=== PATIENT | female | born 2000 | race Caucasian/White ===

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

== ENCOUNTER 2020-01-14 23:42 | Emergency (ER) | payer MEDICAID ==
[~2020-01-14] VITALS: Ht 162.6 cm; Wt 101.6 kg
[2020-01-14 23:56] VITALS: BP 113/62
--- NOTE | 2020-01-15 00:29 | NUR ---
PATIENT AMBULATED TO BED 11.
--- NOTE | 2020-01-15 00:45 | NUR ---
PT C/O OPENING OF HER INCISION SITE FROM HER 2 WEEKS AGO. STATES SHE NOTICED IT THIS MORNING. DENIES PAIN AT THE SITE OR ABDOMINAL AREA. C/O ITCHINESS AT THE SITE. DENIES ANY EXTREME MOVEMENT OR EXERCISE. SITE IS PINK AND MOIST IN COLOR, NO DRAINAGE, NO ODOR. VSS.
[2020-01-15] MEDS ORDERED: BACITRACIN OINT 500 UNITS/GM PKT TP ONE (01:04)
[2020-01-15] MEDS ORDERED: NEOMYCIN/POLYMYXIN/BACITRACIN 0.9 GM/1 PKT TP ONE (01:05)
[2020-01-15 01:15] VITALS: BP 113/62
--- NOTE | 2020-01-15 01:15 | NUR ---
Patient discharged with v/s stable. Written and verbal after care instructions given and explained. Patient alert, oriented and verbalized understanding of instructions. Ambulatory with steady gait. All questions addressed prior to discharge. ID band removed. Patient advised to follow up with PMD. Rx of NEOSPORIN given. Patient educated on indication of medication including possible reaction and side effects. Opportunity to ask questions provided and answered.
== END 2020-01-15 01:15 | disposition home or self-care (01) ==
LOC: MED 23:42
DX: O90.0 Disruption of cesarean delivery wound (principal); J45.909 Unspecified asthma, uncomplicated; Z87.448 Personal history of other diseases of urinary system; Z79.899 Other long term (current) drug therapy
CPT/HCPCS: 99282

== ENCOUNTER 2021-11-07 13:08 | Emergency (ER) | payer MEDICAID ==
[~2021-11-07] VITALS: Ht 162.6 cm; Wt 101.6 kg
[~2021-11-07 13:08] MED LIST changes: +MEDR10TA PO
[2021-11-07 13:32] VITALS: BP 160/76
[2021-11-07] MEDS ORDERED: ALBU0.0912 IH (13:54)
[2021-11-07] MEDS ORDERED: ALBUTEROL SULFATE/IPRATROPIU 3 ML SOL IH ONE (13:55)
--- NOTE | 2021-11-07 19:48 | NUR ---
PT SEEN AND D/C BY DR BARAJAS, NO NURSING INTERVENTIONS RENDERED
--- NOTE | 2021-11-07 19:49 | NUR ---
Patient discharged with v/s stable. Written and verbal after care instructions ABOUT ASTHMA AND MEDICINE REFILL given and explained. Patient alert, oriented and verbalized understanding of instructions. Ambulatory with steady gait. All questions addressed prior to discharge. ID band removed. Patient advised to follow up with PMD. Rx of ALBUTEROL given. Patient educated on indication of medication including possible reaction and side effects. Opportunity to ask questions provided and answered.
== END 2021-11-07 19:48 | disposition home or self-care (01) ==
LOC: MED 13:08
DX: J45.901 Unspecified asthma with (acute) exacerbation (principal); D64.9 Anemia, unspecified; Z79.899 Other long term (current) drug therapy; Z98.890 Other specified postprocedural states
CPT/HCPCS: 94640; 99283

== ENCOUNTER 2021-11-19 19:20 | Emergency (ER) | payer MEDICAID ==
[~2021-11-19] VITALS: Ht 162.6 cm; Wt 127.1 kg
[~2021-11-19 19:20] MED LIST changes: +ALBU0.0912 IH
[2021-11-19 19:34] VITALS: BP 137/70
--- NOTE | 2021-11-19 19:40 | NUR ---
PT IN LOBBY.
[2021-11-19] MEDS ORDERED: PRED20TA5 PO (20:40)
[2021-11-19] MEDS ORDERED: ALBU0.0912 INH (20:40)
[2021-11-19 20:47] VITALS: BP 137/70
--- NOTE | 2021-11-19 20:47 | NUR ---
Patient discharged with v/s stable. Written and verbal after care instructions given and explained. Patient alert, oriented and verbalized understanding of instructions. Ambulatory with steady gait. All questions addressed prior to discharge. ID band removed. Patient advised to follow up with PMD. Rx of PREDNISONE AND ALBUTEROL given. Patient educated on indication of medication including possible reaction and side effects. Opportunity to ask questions provided and answered.
== END 2021-11-19 20:47 | disposition home or self-care (01) ==
LOC: MED 19:20
DX: J45.901 Unspecified asthma with (acute) exacerbation (principal); D64.9 Anemia, unspecified; Z79.899 Other long term (current) drug therapy
CPT/HCPCS: 99283

== ENCOUNTER 2022-09-12 00:48 | Emergency (ER) | payer MEDICAID ==
[~2022-09-12] VITALS: Ht 162.6 cm; Wt 113.4 kg
[~2022-09-12 00:48] MED LIST changes: +ALBU0.0912 INH; +PRED20TA5 PO
[2022-09-12 01:00] VITALS: BP 110/85
--- NOTE | 2022-09-12 01:03 | NUR ---
to lobby a/w bed ambulatory
--- NOTE | 2022-09-12 01:28 | NUR ---
PT AMBULATED TO BED #8
--- NOTE | 2022-09-12 01:55 | NUR ---
DR. CERVANTES AT BEDSIDE
[2022-09-12] MEDS ORDERED: CLOT1CRE83 TP (02:06)
[2022-09-12] MEDS ORDERED: HYDR-1093 PO (02:06)
[2022-09-12 02:12] VITALS: BP 108/81
--- NOTE | 2022-09-12 02:12 | NUR ---
Patient discharged with v/s stable. Written and verbal after care instructions given and explained. Patient alert, oriented and verbalized understanding of instructions. Ambulatory with steady gait. All questions addressed prior to discharge. ID band removed. Patient advised to follow up with PMD. Rx of HYDROXYZINE, CLOTRIMAZOLE given. Patient educated on indication of medication including possible reaction and side effects. Opportunity to ask questions provided and answered.
== END 2022-09-12 02:12 | disposition home or self-care (01) ==
LOC: MED 00:48
DX: L01.00 Impetigo, unspecified (principal); J45.909 Unspecified asthma, uncomplicated; F12.90 Cannabis use, unspecified, uncomplicated; F17.200 Nicotine dependence, unspecified, uncomplicated
CPT/HCPCS: 81025; 99283

== ENCOUNTER 2022-09-26 21:19 | Emergency (ER) | payer MEDICAID ==
[~2022-09-26] VITALS: Ht 162.6 cm; Wt 113.4 kg
[~2022-09-26 21:19] MED LIST changes: +CLOT1CRE83 TP; +HYDR-1093 PO
[2022-09-26 21:43] VITALS: BP 142/85
--- NOTE | 2022-09-26 21:48 | NUR ---
TO LOBBY FOLLOWING TRIAGE AND OBTAINING UA
--- NOTE | 2022-09-26 23:20 | NUR ---
Patient being evaluated by physician
[2022-09-26] MEDS ORDERED: cefTRIAXone 1,000 MG in LIDOCAINE MPF 1% 2.1 ML IM ONE (23:25)
[2022-09-26] MEDS ORDERED: NITR100C7 PO (23:32)
[2022-09-26] MEDS ORDERED: LIDOCAINE MPF 1% 5 ML ONE (23:46)
[2022-09-26] MEDS ORDERED: cefTRIAXone 1,000 MG VIAL ONE (23:46)
--- NOTE | 2022-09-26 23:53 | NUR ---
CALLED FOR PT IN LOBBY TO ADMINISTER MEDICATION. NO ANSWER, CALLED PT OUTSIDE, NO ANSWER
--- NOTE | 2022-09-27 00:05 | NUR ---
CALL TO PTS PHONE, NO ANSWER. PT HAS LEFT
== END 2022-09-27 00:05 | disposition home or self-care (01) ==
LOC: MED 21:19
DX: N39.0 Urinary tract infection, site not specified (principal); J45.909 Unspecified asthma, uncomplicated; D64.9 Anemia, unspecified; K21.9 Gastro-esophageal reflux disease without esophagitis
CPT/HCPCS: 81002; 81025; 99283; J0696; J2001